=== PATIENT | female | born 1955 | race Caucasian/White ===

== ENCOUNTER → 2016-10-17 | Outpatient (CLI) | payer OTHER ==
[~2016-10-17] VITALS: Ht 158.8 cm; Wt 131.5 kg
[~2016-10-17] MED LIST: ASPIRIN81 M2 PO; ATIVAN1 MG PO; ATORVASTATIN CA10 MG PO; BENICAR40 MG PO; CRANBERRY500 M2 PO; CYANOCOBALAM1000 MCG PO; ESCITALOPRAM OX20 MG PO; IBUPROFEN800 MG PO; LEVSIN0.125 MG PO; LORAZEPAM0.5 MG PO; LYRICA75 MG PO; MAGNESIUM400 M1 PO; NEXIUM40 MG PO; SPIRONOLACTONE25 MG PO; TRADJENTA5 MG PO; TRAMADOL HCL50 MG PO
[2016-10-17 09:02] LABS: POINT-OF-CARE METER ID UU13113694
[2016-10-17 11:00] LABS: POINT-OF-CARE METER ID UU13113819
== END | disposition home or self-care (01) ==
LOC: AMB 07:23
PROVIDERS: Urology
PROC: 0TF3XZZ Fragmentation in Right Kidney Pelvis, External Approach (ICD-10-PCS; principal; 2016-10-17)
DX: N20.0 Calculus of kidney (principal); I10 Essential (primary) hypertension; E11.9 Type 2 diabetes mellitus without complications; K21.9 Gastro-esophageal reflux disease without esophagitis; M19.90 Unspecified osteoarthritis, unspecified site
CPT/HCPCS: 74000; 82948; J1170; J2250; J2405; J3010

== ENCOUNTER 2017-01-14 15:20 | Emergency (ER) | payer OTHER ==
[~2017-01-14] VITALS: Ht 157.5 cm; Wt 131.7 kg
[2017-01-14 15:57] LABS: HEMATOCRIT 40.9 % (36.0-46.0); MCH 28.4 PG (29.0-34.0); MCHC 32.3 G/DL (30.0-36.0); MCV 88.1 FL (83-99); MEAN PLAT.VOLUME 9.8 uM^3 (9.5-12.4); PLATELET COUNT 215 K/uL (156-360); RBC DIS.WIDTH-CV 13.4 % (11.8-14.6); RBC DIS.WIDTH-SD 43.3 % (39-53); RED BLOOD COUNT 4.64 M/uL (3.80-5.20); WHITE BLOOD COUNT 7.5 K/uL (4.1-10.2)
[2017-01-14 16:07] LABS: CHLORIDE 104 mEq/L (99-109); POTASSIUM 4.1 mEq/L (3.7-5.4); SODIUM 141 mEq/L (136-147)
[2017-01-14 16:08] LABS: GLUCOSE 141 mg/dL (70-99)
[2017-01-14 16:10] LABS: ANION GAP 9 MEQ/L (2-14)
[2017-01-14 16:12] LABS: GFR ESTIMATE (CALCULATED) > 59 mL/min/
[2017-01-14 16:13] LABS: UREA NITROGEN (BUN) 13 mg/dL (9-23)
[2017-01-14 16:18] LABS: TROP-I INTERPRETATION NEGATIVE; TROPONIN-I < 0.01 ng/mL (0.0-0.30)
[2017-01-14 17:40] VITALS: BP 146/76
== END 2017-01-14 17:43 | disposition home or self-care (01) ==
LOC: EME 15:20
DX: R07.89 Other chest pain (principal); M54.12 Radiculopathy, cervical region; E11.9 Type 2 diabetes mellitus without complications; E78.5 Hyperlipidemia, unspecified; Z79.82 Long term (current) use of aspirin
CPT/HCPCS: 71020; 80048; 84484; 85027; 93005; 99281; 99283